=== PATIENT | male | born 1975 | race Caucasian/White ===

== ENCOUNTER 2022-07-10 18:39 | Emergency (ER) | payer BC, SELFPAY ==
[2022-07-10 18:40] VITALS: BP 136/99; PULSE 136; RESP 15; TEMP 38.6; O2SAT 99; BMI 32.2
[2022-07-10 21:44] VITALS: BP 158/104; PULSE 118; RESP 24; O2SAT 97
--- NOTE | 2022-07-10 22:22 | CT_ITS ---
EXAM: CT Angiography Chest Without and With Intravenous Contrast CLINICAL INDICATION: 46 years old, Male; chest pain TECHNIQUE: Helically acquired angiography images were obtained of the chest without and with intravenous contrast. This CT exam was performed using one or more of the following dose reduction techniques: automated exposure control, adjustment of the mA and/or kV according to patient size, and/or use of iterative reconstruction technique. This report was created using [employer] report generation technology. MIP reconstructed images were created and reviewed. CONTRAST: IV 100mL Isovue-370 RADIATION DOSE: CTDIvol = 12.66 mGy, DLP = 459.62 mGy-cm COMPARISON: CTA Chest dated 03/23/2013 FINDINGS: Pulmonary arteries: Unremarkable. Normal in caliber. No pulmonary embolism. Aorta: Unremarkable. Normal in caliber. No evidence of dissection. Great vessels of aortic arch: Unremarkable. Normal in caliber. No evidence of dissection. Lungs and pleural spaces: Atelectasis posterior lungs. No mass. No pleural effusion or thickening. No pneumothorax. Heart: Unremarkable. Heart size is normal. No pericardial effusion. No signs of right heart strain, ratio of right ventricle to left ventricle measures less than 1. Mediastinum: Scattered mediastinal lymph nodes within normal limits in size. Esophagus is unremarkable. No hiatal hernia. Thyroid: Unremarkable. No thyroid lesions. Bones/joints: Unremarkable. No suspicious lytic or blastic abnormality. Liver: Fatty infiltration of the liver. CT/CTA Chest W/WO Contrast IMPRESSION: No pulmonary embolism. Electronically Signed: Stanley Wooten MD at 23:42 EST ,
--- NOTE | 2022-07-10 22:22 | EKG12_ITS ---
Test Reason : DYSRHYTHMIA Blood Pressure : / mmHG Vent. Rate : 108 BPM Atrial Rate : 108 BPM P-R Int : 132 ms QRS Dur : 088 ms QT Int : 324 ms P-R-T Axes : 024 -18 002 degrees QTc Int : 434 ms Sinus tachycardia Nonspecific T wave abnormality Abnormal ECG Confirmed by MAMIE AARON, CARLITOS ([id number]), telegraph editor JOSE TRUJILLO ([id number]) on 07/12/2022 9:46:18 AM Referred By: TRISTA Confirmed By:CARLITOS HATCH MD
[2022-07-10] MEDS: 0.9% Normal Saline 1,000 ML 999 ML IV (22:28)
[2022-07-10] MEDS: Acetaminophen 325 MG Tablet 650 MG PO (22:34)
[2022-07-10] MEDS: Ondansetron 4 MG/2 ML Vial IV (22:34)
[2022-07-10] MEDS: Morphine 4 MG/ML Syringe IV (22:34)
[2022-07-10 22:40] LABS: Absolute Neutrophil Count 6.7 X10^3/uL (2.0-7.7); Basophil# 0.03 X10^3/uL; Basophil% 0.4 % (0-1); Hematocrit 42.4 % (40-54); Hemoglobin 14.4 g/dL (13.0-16.5); Mean Corpuscular Hgb 29.7 pg (27.0-32.0); Mean Corpuscular Volume 87.4 fL (80-94); Mean Platelet Vol. 9.5 fl (6.2-12.0); Monocyte# 0.77 X10^3/uL; Monocyte% 9.7 % (0-10); NRBC Flagged by Analyzer 0 % (0-5); Neutrophil % 84.4 % (47-70); POSITIVE DIFFERENTIAL YES; Platelet Count 293 K/mm3 (150-450); RBC Distribution Width CV 12.2 % (11.6-14.6); RBC Distribution Width SD 39.1 fl (35.1-43.9); Red Blood Count 4.85 M/mm3 (4.6-6.2); White Blood Count 7.9 K/mm3 (4.4-11.0)
[2022-07-10 22:43] LABS: Differential Indicated SCAN CRITERIA MET
[2022-07-10 22:49] LABS: International Normalized Ratio 1.1; Prothrombin Time (Protime)PT. 13.9 SECONDS (11.7-14.9)
[2022-07-10 22:50] LABS: Partial Thromboplast Time 28.2 Seconds (24.1-36.2)
[2022-07-10 22:58] LABS: Anion Gap 6 (5-15); BUN 13 mg/dL (7-18); BUN/Creat Ratio 8.7 RATIO (10-20); Calcium,Total 8.9 mg/dL (8.5-10.1); Chloride 102 mmol/L (98-107); EST Glomerular Filtration Rate 53 mL/min (>60); Est Glom Filt Rate - Afr Amer 64 mL/min (>60); Estimated Creatinine Clearance 58.27 ml/min; Glucose 96 mg/dL (74-106); Potassium 3.7 mmol/L (3.5-5.1); Sodium Level 134 mmol/L (136-145); Troponin-I HS 4 pg/mL (3.0-78.0)
[2022-07-10 23:00] VITALS: BP 134/84; PULSE 100; RESP 16; O2SAT 92
[2022-07-10 23:03] LABS: Differential Comment SCANNED
--- NOTE | 2022-07-11 00:30 | EDS_ITS ---
HPI History of Present Illness Chief Complaint: Fever Narrative Narrative: Patient is a 46-year-old male with remote history of pulmonary emboli that he states developed when he had walking pneumonia about 10 years ago. He states he is not on blood thinners. He reports that over the past 24 hours he has noticed shortness of breath with pain with inspiration. He states that this feels similar nature to the last time he had the blood clots and has concern for this once again and therefore comes in for evaluation [facility] Medical History (Updated 07/11/22 @ 00:[address] Ld Pierce, DO) Anxiety GERD (gastroesophageal reflux disease) Hypothyroidism IBS (irritable bowel syndrome) Medical History no medical history Home Medications Fluvoxamine Maleate [Fluvoxamine Maleate Er] 100 mg PO DAILY 09/17/13 [History Last Taken Unknown] gabapentin 600 mg tablet (Neurontin) 800 mg PO TID 09/17/13 [History Last Taken Unknown] omeprazole 20 mg capsule,delayed release 40 mg PO BID 09/17/13 [History Last Taken Unknown] albuterol sulfate 90 mcg/actuation aerosol inhaler 2 puff inhalation Q6H PRN PRN see md 07/10/22 [History Last Taken Unknown] amlodipine 5 mg tablet 5 mg PO DAILY 07/10/22 [History Last Taken Unknown] clonazepam 1 mg disintegrating tablet 1 mg PO TID PRN Anxiety 07/10/22 [History Last Taken Unknown] esketamine 56 mg (28 mg x 2) nasal spray (Spravato) See Rx Instructions .Route .COMPLEX 07/10/22 [History Last Taken Unknown] montelukast 10 mg tablet 10 mg PO QHS 07/10/22 [History Last Taken Unknown] oseltamivir 75 mg capsule (Tamiflu) 75 mg PO BID 5 days #10 caps 07/11/22 [Rx Last Taken Unknown] promethazine 6.25 mg-codeine 10 mg/5 mL syrup 5 ml PO 4X/DAY PRN PRN cough 7 days #140 mL 07/11/22 [Rx Last Taken Unknown] Allergy/AdvReac Type Severity Reaction Status Date / Time No Known Allergies Allergy Verified 07/10/22 18:40 Social History Smoking Status: Never smoker ROS ROS ED Constitutional Constitutional ED: Reports fever(s); Denies chills Eyes Eyes: Denies change in vision ENT ENT ED: Denies rhinorrhea or sore throat Cardiovascular Cardiovascular: Reports chest pain and racing heartbeat; Denies palpitations Respiratory/Chest Respiratory/Chest: Reports dyspnea; Denies cough Gastrointestinal Gastrointestinal: Denies abdominal pain, diarrhea, nausea or vomiting Genitourinary Genitourinary ED: Denies dysuria Musculoskeletal Musculoskeletal: Reports myalgias Integumentary Denies rash Neurologic Neurologic: Denies headache(s) Hematologic/Lymphatic Hematologic/Lymphatic: Denies easy bleeding or easy bruising EXAM Physical Exam Const Vital Signs: 07/10/22 18:40 07/10/22 21:44 07/10/22 22:15 Temperature 101.4 F H Temperature Source Temporal Pulse Rate 136 H 118 H Respiratory Rate 15 24 H Respiratory Effort Normal Non-Labored Respiratory Pattern Normal Blood Pressure 136/99 H 158/104 H Blood Pressure Mean 111 122 Pulse Ox 99 97 Oxygen Delivery Method Room Air Room Air 07/10/22 23:00 07/11/22 00:49 Temperature Temperature Source Pulse Rate 100 100 Respiratory Rate 16 20 H Respiratory Effort Respiratory Pattern Blood Pressure 134/84 H 130/81 H Blood Pressure Mean 100 Pulse Ox 92 90 Oxygen Delivery Method Room Air Positive well nourished and well developed General Appearance ED: well developed HEENT Reports moist mucous membranes Eyes PERRL and EOMs intact bilaterally Neck supple and no JVD Neck Narrative: Positive anterior cervical lymphadenopathy noted Chest Wall palpation of chest normal Resp normal respiratory effort and clear to auscultation bilaterally Resp Narrative: Breath sounds are diminished throughout but overall clear to auscultation Cardio regular rhythm Rate: tachycardic and other Other Details: Radial pulses are +2-4 bilaterally are equal and symmetric Carotid pulses are equal and symmetric as well GI normal to inspection, nondistended, normoactive bowel sounds, non-tender, non- distended and no masses GI Narrative: No voluntary guarding or rigidity no pulsatile mass Auscultation: normoactive bowel sounds Palpation: soft Extremity normal to inspection Extremity Narrative: No asymmetric edema no pitting edema negative Homans' sign bilaterally Neuro oriented x3 and CN's II-XII intact bilaterally Sensorium / Orientation: alert Psych mental status grossly normal Skin no rashes or lesions noted MDM MDM MDM Narrative Medical decision making narrative: Patient presented to the ER febrile and tachycardic but despite this was satting in the mid to high 90s on room air. With the fever there is concern for an infectious process but with the patient's past medical history of spontaneous pulmonary embolus when he had been sick before with pneumonia there was concern that he has now developed blood clots once again. Therefore basic labs were obtained along with COVID and influenza swabs because of his fever and a CTA was ordered. Blood work revealed no clinically significant findings and patient did test positive for influenza A. CTA revealed no pulmonary embolus and it showed no pleural effusion pneumothorax or infiltrates. On reevaluation the patient is resting comfortably his pulse ox is in the mid 90s and he can talk without any distress. Therefore as he has no signs of heart damage based on EKG and troponin and pulmonary embolus has been ruled out and he is not hypoxic or requiring supplemental oxygen I feel he can be given symptomatic medications and discharged home Lab Data Attestation: I reviewed the patient's lab results. Labs: Laboratory Results - last 24 hr 07/10/22 07/10/22 07/10/22 22:10 22:10 22:10 WBC 7.9 RBC 4.85 Hgb 14.4 Hct 42.4 MCV 87.4 MCH 29.7 MCHC 34.0 RDW Std Deviation 39.1 RDW Coeff of Shoaib 12.2 Plt Count 293 MPV 9.5 Immature Gran % (Auto) 0.500 Neut % (Auto) 84.4 H Lymph % (Auto) 5.0 L [place] % (Auto) 9.7 Eos % (Auto) 0.0 Baso % (Auto) 0.4 Absolute Neuts (auto) 6.7 Absolute Lymphs (auto) 0.40 L Nucleated RBC % 0 Differential Comment SCANNED PT 13.9 INR 1.1 APTT 28.2 Sodium 134 L Potassium 3.7 Chloride 102 Carbon Dioxide 26.0 Anion Gap 6 BUN 13 Creatinine 1.50 H Estim Creat Clear Calc 58.27 Est GFR (MDRD) Af Amer 64 Est GFR (MDRD) Non-Af 53 L BUN/Creatinine Ratio 8.7 L Glucose 96 Calcium 8.9 Magnesium 2.0 Troponin I High Sens 4 Radiography Diagnostic Testing: Clinical Impression(s) from Imaging Studies Chest CTA 07/10/22 22:22 IMPRESSION: No pulmonary embolism. Electronically Signed: Stanley Wooten MD at 23:42 EST , Discharge Plan Triage Chief Complaint: Fever ED Provider: Ld Pierce Dx/Rx/DC Orders Clinical Impression: Influenza A, Pyrexia Instructions: ED Fever Control (Adult), ED Influenza (Adult) Prescriptions: New oseltamivir [Tamiflu] 75 mg capsule 75 mg PO BID 5 Days Qty: 10 0RF promethazine-codeine 6.25-10 mg/5 mL syrup 5 ml PO 4X/DAY PRN PRN (Reason: cough) 7 Days Qty: 140 0RF No Action gabapentin [Neurontin] 600 MG tablet 800 mg PO TID omeprazole 20 MG capsule 40 mg PO BID Fluvoxamine Maleate [Fluvoxamine Maleate Er] 100 MG Cap.Er.24h 100 mg PO DAILY amlodipine 5 mg tablet 5 mg PO DAILY montelukast 10 mg tablet 10 mg PO QHS albuterol sulfate 90 mcg/actuation HFA aerosol inhaler 2 puff INHALATION Q6H PRN PRN (Reason: see md) Label Comments: TAKE 2 PUFFS BY MOUTH EVERY 4 HOURS NEEDED clonazepam 1 mg tablet,disintegrating 1 mg PO TID PRN (Reason: Anxiety) Spravato 56 mg (28 mg x 2) spray,non-aerosol See Rx Instructions .ROUTE .COMPLEX Rx Instructions: every 3 weeks Primary Care Provider: Kye Dunn Referrals: Kye Dunn MD [Primary Care Provider] - Activity Restrictions/Additional Instructions: Please return to the ER should you have any further concerns or worsening of symptoms but continue to take Tylenol and/or Motrin to control fever which will help with symptoms Disposition Disposition: Home, Self Care Discharge Date/Time: 07/11/22 00:55
[2022-07-11 00:49] VITALS: BP 130/81; PULSE 100; RESP 20; O2SAT 90
== END 2022-07-11 00:55 | disposition home or self-care (01) ==
PROVIDERS: Emergency Provider Emergency Medicine; PCP Family Medicine; Visit Provider Emergency Medicine
DX: J10.1 Influenza due to other identified influenza virus with other respiratory manifestations (principal); R06.02 Shortness of breath; R07.9 Chest pain, unspecified; R50.9 Fever, unspecified; Z86.711 Personal history of pulmonary embolism
CPT/HCPCS: 71275; 80048; 83735; 84484; 85025; 85610; 85730; 87428; 93005; 96361; 96374; 96375; 99284; J7030; Q9967; A4216; J2405